=== PATIENT | female | born 1950 | race Caucasian/White ===

== ENCOUNTER 2019-09-12 15:49 | Inpatient (IN) | payer MEDICARE, OTHER ==
[~2019-09-12] VITALS: Ht 154.9 cm; Wt 57.2 kg
[2019-09-12] MEDS ORDERED: LORAZEPAM 1 MG TABLET ONE (16:04)
[2019-09-12] MEDS ORDERED: BUSP5TAB3 PO (16:09)
[2019-09-12] MEDS ORDERED: HYDR-3980 PO (16:09)
[2019-09-12] MEDS ORDERED: APIX5TAB4 PO (16:09)
[2019-09-12] MEDS ORDERED: MIRT15TA7 PO (16:09)
[2019-09-12] MEDS ORDERED: SPIR25TA6 PO (16:09)
[2019-09-12] MEDS ORDERED: SENN-168 PO (16:09)
[2019-09-12] MEDS ORDERED: LEVE500T20 PO (16:09)
[2019-09-12] MEDS ORDERED: FURO20TA4 PO (16:09)
[2019-09-12] MEDS ORDERED: LOPE2TAB25 PO (16:09)
[2019-09-12] MEDS ORDERED: LEVO50TA8 PO (16:09)
[2019-09-12] MEDS ORDERED: DULO30CA2 PO (16:09)
[2019-09-12] MEDS ORDERED: LORAZEPAM 0.5 MG TABLET PO ONE (16:15)
[2019-09-12] MEDS ORDERED: IV NORMAL SALINE 1000 ML BAG IV ONE (16:15)
[2019-09-12 16:33] LABS: POTASSIUM 4.1 mmol/L (3.5-5.1)
[2019-09-12 16:34] LABS: BILIRUBIN,DIRECT 0.3 mg/dL (0.0-0.2); CREATININE 1.2 mg/dL (0.6-1.3)
[2019-09-12 16:35] LABS: TOTAL PROTEIN, SERUM 7.1 g/dL (6.4-8.2)
[2019-09-12 16:38] LABS: HEMATOCRIT 41.6 % (37-47); HEMOGLOBIN 13.7 G/DL (12.0-16.0); MEAN CORPUSCULAR HEMOGLOBIN 30.9 UUG (27.0-31.0); MEAN CORPUSCULAR HGB CONC 33 g/dL (32.0-37.0); MEAN CORPUSCULAR VOLUME 93.8 FL (81.0-99.0); PLATELET COUNT (AUTO) 157 K/UL (150-450); RED BLOOD CELL COUNT(AUTO) 4.43 MIL/UL (4.2-5.4); WHITE BLOOD COUNT (AUTO) 9.7 K/UL (4.0-11.2)
[2019-09-12 16:39] LABS: BASOPHILS # (AUTO) 0.1 K/uL (0.0-8.0); EOSINOPHILS # (AUTO) 0.1 K/uL (0.0-0.7); EOSINOPHILS % (AUTO) 0.9 % (0.0-7.0); LYMPHOCYTES % (AUTO) 20.8 % (20.5-51.5); MONOCYTES # (AUTO) 0.8 K/UL (0.1-1.30); MONOCYTES % (AUTO) 8.2 % (0.0-11.0); NEUTROPHILS # (AUTO) 6.7 K/UL (1.8-8.9); NEUTROPHILS % (AUTO) 69.1 % (38.5-71.5)
[2019-09-12 16:56] LABS: THYROID STIMULATING HORMONE 0.327 mIU/mL (0.358-3.740)
[2019-09-12 17:23] LABS: *CLARITY,URINE TURBID (CLEAR); *COLOR,URINE BROWN (YELLOW)
[2019-09-12 17:25] LABS: *BILIRUBIN,URIN 2+ (NEGATIVE); *BLOOD, URINE 2+ (NEGATIVE); *KETONES,URINE TRACE (NEGATIVE); LEUKOCYTE ESTERASE ,URINE 3+ (NEGATIVE); NITRITE, URINE POSITIVE (NEGATIVE); UGLUCOSE NEGATIVE (NEGATIVE)
[2019-09-12 17:28] LABS: BACTERIA,URINE MODERATE /HPF (NONE SEEN); RBC,URINE 20-50 /HPF (0-3); SQUAMOUS EPITHELIAL CELL,UR MANY /HPF (NONE SEEN); WBC,URINE TNTC /HPF (0-3)
[2019-09-12] MEDS ORDERED: CEFTRIAXONE /D5W 50ML IVPB **ER PYXIS IV ONE (18:00)
[2019-09-12] MEDS ORDERED: MAGNESIUM HYDROXIDE 30 ML LIQUID UDC PO PRN (18:00)
[2019-09-12] MEDS ORDERED: CEFTRIAXONE 1 G in IV DEXTROSE 5% 50 ML IV ONE (18:00)
[2019-09-12] MEDS ORDERED: Z GUARD REMEDY PASTE 57 GM TUBE TOP PRN (18:00)
[2019-09-12] MEDS ORDERED: ACETAMINOPHEN 325 MG TABLET PO PRN (18:00)
[2019-09-12] MEDS ORDERED: ONDANSETRON 4 MG/2 ML VIAL IV PRN (18:00)
[2019-09-12 18:54] VITALS: BP 104/72
[2019-09-12 20:00] VITALS: BP 91/59
[2019-09-12] MEDS: MIRTAZAPINE 15 MG TABLET PO SCH (20:28)
[2019-09-12] MEDS: SENNOSIDES 1 TABLET PO SCH (20:28)
[2019-09-12] MEDS: IV NS 1000 ML 1,000 ML IV PRN (20:30)
[2019-09-13] VITALS (7 sets, daily range): BP systolic 100–122; BP diastolic 60–84
[2019-09-13 05:33] LABS: HEMATOCRIT 38.1 % (37-47); HEMOGLOBIN 12.6 G/DL (12.0-16.0); MEAN CORPUSCULAR HEMOGLOBIN 30.5 UUG (27.0-31.0); MEAN CORPUSCULAR VOLUME 92.3 FL (81.0-99.0); RED BLOOD CELL COUNT(AUTO) 4.13 MIL/UL (4.2-5.4); WHITE BLOOD COUNT (AUTO) 5.2 K/UL (4.0-11.2)
[2019-09-13 05:34] LABS: BASOPHILS % (AUTO) 1.5 % (0.0-2.0); EOSINOPHILS % (AUTO) 2.4 % (0.0-7.0); LYMPHOCYTES % (AUTO) 26.9 % (20.5-51.5); MEAN CORPUSCULAR HGB CONC 33 g/dL (32.0-37.0); MONOCYTES % (AUTO) 7.7 % (0.0-11.0); NEUTROPHILS % (AUTO) 61.5 % (38.5-71.5); PLATELET COUNT (AUTO) 100 K/UL (150-450)
[2019-09-13] MEDS: DULOXETINE 30 MG CAPSULE.DR PO SCH (05:50)
[2019-09-13] MEDS: HYDROCODONE/APAP 5-325MG TABLET PO PRN ×2 (06:00→20:59)
[2019-09-13 07:23] LABS: CREATININE 0.9 mg/dL (0.6-1.3)
[2019-09-13 07:24] LABS: POTASSIUM 4.2 mmol/L (3.5-5.1)
[2019-09-13 07:34] LABS: PHOSPHOROUS 3.9 mg/dL (2.5-4.9)
[2019-09-13] MEDS: busPIRone 5 MG TABLET PO SCH ×3 (08:15→17:12)
[2019-09-13] MEDS: APIXABAN 5 MG TABLET PO SCH ×2 (08:15→17:14)
[2019-09-13] MEDS: LEVETIRACETAM 500 MG TABLET PO SCH (08:15)
[2019-09-13] MEDS ORDERED: Medication Not On Formulary EA (Apixaban (Eliquis) 5 MG) PO SCH (09:00)
[2019-09-13] MEDS ORDERED: APIXABAN 5 MG TABLET PO SCH (09:00)
[2019-09-13] MEDS: HYDROCODONE/APAP 10-325 MG TABLET PO PRN (12:20)
[2019-09-13] MEDS: IV NS 1000 ML 1,000 ML IV PRN (15:29)
[2019-09-13] MEDS: CEFTRIAXONE 1 G in IV DEXTROSE 5% 50 ML IV SCH (17:14)
[2019-09-13] MEDS: SENNOSIDES 1 TABLET PO SCH (20:43)
[2019-09-13] MEDS: OLANZAPINE 2.5 MG TABLET PO SCH (20:43)
[2019-09-13] MEDS: MIRTAZAPINE 15 MG TABLET PO SCH (20:44)
[2019-09-14] VITALS: BP 99/72
[2019-09-14 05:08] VITALS: BP 102/78
[2019-09-14] MEDS: DULOXETINE 30 MG CAPSULE.DR PO SCH (06:36)
[2019-09-14] MEDS: LEVOTHYROXINE SODIUM 50 MCG TABLET PO SCH (06:36)
[2019-09-14 08:19] VITALS: BP 123/74
[2019-09-14] MEDS: LEVETIRACETAM 500 MG TABLET PO SCH (08:21)
[2019-09-14] MEDS: busPIRone 5 MG TABLET PO SCH ×3 (08:22→16:31)
[2019-09-14] MEDS: APIXABAN 5 MG TABLET PO SCH ×2 (08:24→16:31)
[2019-09-14] MEDS: HYDROCODONE/APAP 5-325MG TABLET PO PRN (09:23)
[2019-09-14 09:47] LABS: HEMATOCRIT 38.3 % (37-47); HEMOGLOBIN 12.5 G/DL (12.0-16.0); MEAN CORPUSCULAR HEMOGLOBIN 30.8 UUG (27.0-31.0); MEAN CORPUSCULAR HGB CONC 33 g/dL (32.0-37.0); MEAN CORPUSCULAR VOLUME 94.6 FL (81.0-99.0); PLATELET COUNT (AUTO) 88 K/UL (150-450); RED BLOOD CELL COUNT(AUTO) 4.05 MIL/UL (4.2-5.4)
[2019-09-14 09:48] LABS: BASOPHILS % (AUTO) 0.9 % (0.0-2.0); EOSINOPHILS # (AUTO) 0.1 K/uL (0.0-0.7); EOSINOPHILS % (AUTO) 2.7 % (0.0-7.0); LYMPHOCYTES # (AUTO) 0.9 K/UL (0.8-4.8); MONOCYTES # (AUTO) 0.1 K/UL (0.1-1.30); MONOCYTES % (AUTO) 4.8 % (0.0-11.0); NEUTROPHILS # (AUTO) 1.9 K/UL (1.8-8.9); NEUTROPHILS % (AUTO) 62.6 % (38.5-71.5)
[2019-09-14 10:16] LABS: CREATININE 0.8 mg/dL (0.6-1.3); MAGNESIUM 1.9 mg/dL (1.8-2.4)
[2019-09-14 10:46] LABS: BASOPHILS % (MANUAL) 2 % (0-2); EOSINOPHILS % (MANUAL) 3 % (0-8); LYMPHOCYTES % (MANUAL) 27 % (20-40); MONOCYTES % (MANUAL) 2 % (2-10); NEUTROPHILS % (MANUAL) 66 % (42-75)
[2019-09-14 11:00] VITALS: BP 102/62
[2019-09-14] MEDS: IV NS 1000 ML 1,000 ML IV PRN (12:00)
[2019-09-14 15:00] VITALS: BP 93/58
[2019-09-14] MEDS: CEFTRIAXONE 1 G in IV DEXTROSE 5% 50 ML IV SCH (17:36)
[2019-09-14 19:55] VITALS: BP 100/64
[2019-09-14] MEDS: SENNOSIDES 1 TABLET PO SCH (20:01)
[2019-09-14] MEDS: OLANZAPINE 2.5 MG TABLET PO SCH (20:02)
[2019-09-14] MEDS: MIRTAZAPINE 15 MG TABLET PO SCH (20:02)
[2019-09-14] MEDS: HYDROCODONE/APAP 10-325 MG TABLET PO PRN (20:05)
[2019-09-15 00:18] VITALS: BP 105/68
[2019-09-15] MEDS: HYDROCODONE/APAP 10-325 MG TABLET PO PRN ×2 (03:25→12:22)
[2019-09-15 04:56] VITALS: BP 124/75
[2019-09-15] MEDS: DULOXETINE 30 MG CAPSULE.DR PO SCH (06:37)
[2019-09-15] MEDS: LEVOTHYROXINE SODIUM 50 MCG TABLET PO SCH (06:37)
[2019-09-15] MEDS: busPIRone 5 MG TABLET PO SCH ×2 (09:30→12:16)
[2019-09-15] MEDS: LEVETIRACETAM 500 MG TABLET PO SCH (09:30)
[2019-09-15] MEDS ORDERED: APIXABAN 5 MG TABLET PO SCH (10:00)
[2019-09-15] MEDS ORDERED: CEPH-570 PO (10:28)
[2019-09-15] MEDS ORDERED: OLAN2.5T3 PO (10:28)
[2019-09-15 11:25] VITALS: BP 108/56
[2019-09-15 15:14] VITALS: BP 113/74
== END 2019-09-15 16:11 | DRG 689 ==
LOC: ER 15:49 → CCU 18:10 → TELE3 09-13 06:25 → TELE-TD3 09-13 07:08 → TELE3 09-14 09:07 → MEDSURG3 09-15 15:05
PROVIDERS: ADMIT Nurse Practitioner Acute Care; ATTEND Nurse Practitioner Acute Care
DX: N39.0 Urinary tract infection, site not specified (principal); G93.41 Metabolic encephalopathy; R45.851 Suicidal ideations; I48.91 Unspecified atrial fibrillation; B96.20 Unspecified Escherichia coli [E. coli] as the cause of diseases classified elsewhere; F25.9 Schizoaffective disorder, unspecified; M21.822 Other specified acquired deformities of left upper arm; M19.112 Post-traumatic osteoarthritis, left shoulder; K70.30 Alcoholic cirrhosis of liver without ascites; F10.10 Alcohol abuse, uncomplicated; Y90.9 Presence of alcohol in blood, level not specified; J44.9 Chronic obstructive pulmonary disease, unspecified; E03.9 Hypothyroidism, unspecified; I25.10 Atherosclerotic heart disease of native coronary artery without angina pectoris; M79.7 Fibromyalgia; F17.210 Nicotine dependence, cigarettes, uncomplicated; Z91.410 Personal history of adult physical and sexual abuse; G89.29 Other chronic pain; Z79.890 Hormone replacement therapy; Z82.49 Family history of ischemic heart disease and other diseases of the circulatory system; Z91.411 Personal history of adult psychological abuse; E86.0 Dehydration; Z86.19 Personal history of other infectious and parasitic diseases; Z79.01 Long term (current) use of anticoagulants; F15.90 Other stimulant use, unspecified, uncomplicated
CPT/HCPCS: 36415; 70030-TC; 71045; 83605; 83735; 84100; 84443; 85025; 85730; 87040; 87086; 93005; 93307; A4663; G0378; J0696; J7030; J7040; J7060

== ENCOUNTER 2019-09-15 16:27 | Inpatient (IN) | payer MEDICARE, OTHER ==
[~2019-09-15] VITALS: Ht 175.3 cm; Wt 53.5 kg
[~2019-09-15 16:27] MED LIST: APIX5TAB4 PO; BUSP5TAB3 PO; CEPH-570 PO; DULO30CA2 PO; FURO20TA4 PO; HYDR-3980 PO; LEVE500T20 PO; LEVO50TA8 PO; LOPE2TAB25 PO; MIRT15TA7 PO; OLAN2.5T3 PO; SENN-168 PO; SPIR25TA6 PO
[2019-09-15] MEDS ORDERED: QUETIAPINE FUMARATE 25 MG TABLET PO PRN (17:45)
[2019-09-15] MEDS ORDERED: MAGNESIUM HYDROXIDE 30 ML LIQUID UDC PO PRN (17:45)
[2019-09-15] MEDS ORDERED: ACETAMINOPHEN 325 MG TABLET PO PRN (17:45)
[2019-09-15] MEDS ORDERED: BLOOD SUGAR DIAGNOSTIC 1 EACH STRIP VI ONE (17:45)
[2019-09-15 20:18] VITALS: BP 105/58
[2019-09-15] MEDS: ZOLPIDEM 5 MG TABLET PO PRN (23:34)
[2019-09-16] MEDS: HYDROCODONE/APAP 10-325 MG TABLET PO PRN ×2 (04:32→10:53)
[2019-09-16 05:59] LABS: BASOPHILS # (AUTO) 0.1 K/uL (0.0-8.0); BASOPHILS % (AUTO) 2.3 % (0.0-2.0); EOSINOPHILS # (AUTO) 0.1 K/uL (0.0-0.7); EOSINOPHILS % (AUTO) 3.4 % (0.0-7.0); HEMATOCRIT 35.4 % (31.2-41.9); HEMOGLOBIN 11.7 g/dL (10.9-14.3); LYMPHOCYTES # (AUTO) 1.1 K/uL (20.0-40.0); LYMPHOCYTES % (AUTO) 33.5 % (20.5-51.5); MEAN CORPUSCULAR HGB CONC 33 g/dL (32.3-35.6); MEAN CORPUSCULAR VOLUME 93.5 fL (75.5-95.3); MONOCYTES # (AUTO) 0.2 K/uL (2.0-10.0); MONOCYTES % (AUTO) 7.4 % (0.0-11.0); NEUTROPHILS # (AUTO) 1.7 K/uL (1.8-8.9); NEUTROPHILS % (AUTO) 53.4 % (38.5-71.5); PLATELET COUNT (AUTO) 93 K/uL (179-408); RED BLOOD CELL COUNT(AUTO) 3.79 MIL/uL (3.63-4.92); WHITE BLOOD COUNT (AUTO) 3.3 K/uL (3.8-11.8)
[2019-09-16 06:16] LABS: CREATININE 0.7 mg/dL (0.6-1.3); POTASSIUM 3.8 mmol/L (3.5-5.1)
[2019-09-16] MEDS: LEVOTHYROXINE SODIUM 50 MCG TABLET PO SCH (06:37)
[2019-09-16] MEDS: FUROSEMIDE 20 MG TABLET PO SCH (08:49)
[2019-09-16] MEDS: CEphaleXIN 500 MG CAPSULE PO SCH ×2 (08:49→17:19)
[2019-09-16] MEDS: DULOXETINE 20 MG CAPSULE.DR PO SCH (08:49)
[2019-09-16] MEDS: SPIRONOLACTONE 25 MG TABLET PO SCH (08:49)
[2019-09-16] MEDS: LEVETIRACETAM 500 MG TABLET PO SCH (08:49)
[2019-09-16] MEDS ORDERED: Medication Not On Formulary EA (Apixaban (Eliquis) 5 MG) PO SCH (09:00)
[2019-09-16] MEDS: APIXABAN 5 MG TABLET PO SCH ×2 (11:52→17:20)
[2019-09-16 12:00] VITALS: BP 105/63
[2019-09-16 13:18] LABS: BILIRUBIN,DIRECT 0.1 mg/dL (0.0-0.2); BILIRUBIN,TOTAL 0.4 mg/dL (0.2-1.0); TOTAL PROTEIN, SERUM 6.1 g/dL (6.4-8.2)
[2019-09-16 15:16] VITALS: BP 106/74
[2019-09-16 20:02] VITALS: BP 110/62
[2019-09-16] MEDS: OLANZAPINE 5 MG TABLET PO SCH (20:39)
[2019-09-16] MEDS: SENNOSIDES 1 TABLET PO SCH (20:39)
[2019-09-16] MEDS: CARVEDILOL 6.25 MG TABLET PO SCH (20:40)
[2019-09-16] MEDS: ZOLPIDEM 5 MG TABLET PO PRN (21:24)
[2019-09-17] MEDS: LEVOTHYROXINE SODIUM 50 MCG TABLET PO SCH (06:30)
[2019-09-17] MEDS: HYDROCODONE/APAP 10-325 MG TABLET PO PRN ×3 (06:54→18:52)
[2019-09-17] MEDS: DULOXETINE 20 MG CAPSULE.DR PO SCH (08:25)
[2019-09-17] MEDS: LEVETIRACETAM 500 MG TABLET PO SCH (08:25)
[2019-09-17] MEDS: SPIRONOLACTONE 25 MG TABLET PO SCH (08:25)
[2019-09-17] MEDS: OLANZAPINE 2.5 MG TABLET PO SCH (08:25)
[2019-09-17] MEDS: FUROSEMIDE 20 MG TABLET PO SCH (08:25)
[2019-09-17] MEDS: CEphaleXIN 500 MG CAPSULE PO SCH ×2 (08:26→17:43)
[2019-09-17] MEDS: CARVEDILOL 6.25 MG TABLET PO SCH ×2 (08:26→17:45)
[2019-09-17] MEDS: APIXABAN 5 MG TABLET PO SCH ×2 (08:28→17:44)
[2019-09-17 11:41] VITALS: BP 111/64
[2019-09-17 16:00] VITALS: BP 147/95
[2019-09-17] MEDS: OLANZAPINE 5 MG TABLET PO SCH (20:44)
[2019-09-17] MEDS: SENNOSIDES 1 TABLET PO SCH (20:44)
[2019-09-17 20:55] VITALS: BP 121/61
[2019-09-18] MEDS: LEVOTHYROXINE SODIUM 50 MCG TABLET PO SCH (06:48)
[2019-09-18 07:30] VITALS: BP 133/90
[2019-09-18] MEDS: SPIRONOLACTONE 25 MG TABLET PO SCH (08:21)
[2019-09-18] MEDS: LEVETIRACETAM 500 MG TABLET PO SCH (08:21)
[2019-09-18] MEDS: FUROSEMIDE 20 MG TABLET PO SCH (08:21)
[2019-09-18] MEDS: CEphaleXIN 500 MG CAPSULE PO SCH ×2 (08:21→16:19)
[2019-09-18] MEDS: OLANZAPINE 2.5 MG TABLET PO SCH (08:21)
[2019-09-18] MEDS: CARVEDILOL 6.25 MG TABLET PO SCH ×2 (08:22→18:00)
[2019-09-18] MEDS: DULOXETINE 20 MG CAPSULE.DR PO SCH (08:22)
[2019-09-18] MEDS: APIXABAN 5 MG TABLET PO SCH ×2 (08:25→16:22)
[2019-09-18] MEDS: HYDROCODONE/APAP 10-325 MG TABLET PO PRN ×2 (09:04→21:21)
[2019-09-18 16:00] VITALS: BP 106/68
[2019-09-18] MEDS: OLANZAPINE 5 MG TABLET PO SCH (20:06)
[2019-09-18] MEDS: SENNOSIDES 1 TABLET PO SCH (20:06)
[2019-09-18 21:01] VITALS: BP 142/82
[2019-09-18] MEDS: ZOLPIDEM 5 MG TABLET PO PRN (21:53)
[2019-09-19] MEDS: HYDROCODONE/APAP 10-325 MG TABLET PO PRN ×3 (03:19→17:52)
[2019-09-19] MEDS: LEVOTHYROXINE SODIUM 50 MCG TABLET PO SCH (06:43)
[2019-09-19 07:30] VITALS: BP 120/82
[2019-09-19] MEDS: OLANZAPINE 2.5 MG TABLET PO SCH (08:21)
[2019-09-19] MEDS: FUROSEMIDE 20 MG TABLET PO SCH (08:21)
[2019-09-19] MEDS: DULOXETINE 20 MG CAPSULE.DR PO SCH (08:21)
[2019-09-19] MEDS: LEVETIRACETAM 500 MG TABLET PO SCH (08:21)
[2019-09-19] MEDS: CEphaleXIN 500 MG CAPSULE PO SCH (08:21)
[2019-09-19] MEDS: APIXABAN 5 MG TABLET PO SCH ×2 (08:22→17:56)
[2019-09-19] MEDS: SPIRONOLACTONE 25 MG TABLET PO SCH (08:22)
[2019-09-19] MEDS: CARVEDILOL 6.25 MG TABLET PO SCH ×2 (08:23→18:20)
[2019-09-19 16:41] VITALS: BP 118/76
[2019-09-19 20:18] VITALS: BP 109/65
[2019-09-19] MEDS: SENNOSIDES 1 TABLET PO SCH (20:30)
[2019-09-19] MEDS: OLANZAPINE 5 MG TABLET PO SCH (20:30)
[2019-09-19] MEDS: ZOLPIDEM 5 MG TABLET PO PRN (22:39)
[2019-09-20] MEDS: LEVOTHYROXINE SODIUM 50 MCG TABLET PO SCH (06:44)
[2019-09-20] MEDS: HYDROCODONE/APAP 10-325 MG TABLET PO PRN ×3 (06:44→19:47)
[2019-09-20] MEDS: CARVEDILOL 6.25 MG TABLET PO SCH ×2 (08:16→17:01)
[2019-09-20] MEDS: DULOXETINE 20 MG CAPSULE.DR PO SCH (08:16)
[2019-09-20] MEDS: SPIRONOLACTONE 25 MG TABLET PO SCH (08:16)
[2019-09-20] MEDS: APIXABAN 5 MG TABLET PO SCH ×2 (08:17→16:36)
[2019-09-20 08:18] VITALS: BP 121/76
[2019-09-20] MEDS: LEVETIRACETAM 500 MG TABLET PO SCH (08:18)
[2019-09-20] MEDS: FUROSEMIDE 20 MG TABLET PO SCH (08:18)
[2019-09-20] MEDS: OLANZAPINE 2.5 MG TABLET PO SCH (08:18)
[2019-09-20] MEDS ORDERED: OLANZAPINE 2.5 MG TABLET PO ONE (14:00)
[2019-09-20 16:29] VITALS: BP 119/73
[2019-09-20 20:08] VITALS: BP 103/67
[2019-09-20] MEDS: OLANZAPINE 5 MG TABLET PO SCH (20:43)
[2019-09-20] MEDS: SENNOSIDES 1 TABLET PO SCH (20:43)
[2019-09-21] MEDS: ZOLPIDEM 5 MG TABLET PO PRN (00:01)
[2019-09-21] MEDS: HYDROCODONE/APAP 10-325 MG TABLET PO PRN ×4 (03:26→22:05)
[2019-09-21] MEDS: LEVOTHYROXINE SODIUM 50 MCG TABLET PO SCH (06:59)
[2019-09-21] MEDS: SPIRONOLACTONE 25 MG TABLET PO SCH (08:19)
[2019-09-21] MEDS: DULOXETINE 20 MG CAPSULE.DR PO SCH (08:19)
[2019-09-21] MEDS: OLANZAPINE 2.5 MG TABLET PO SCH (08:19)
[2019-09-21] MEDS: FUROSEMIDE 20 MG TABLET PO SCH (08:19)
[2019-09-21] MEDS: LEVETIRACETAM 500 MG TABLET PO SCH (08:19)
[2019-09-21] MEDS: CARVEDILOL 6.25 MG TABLET PO SCH ×2 (08:20→17:06)
[2019-09-21] MEDS: APIXABAN 5 MG TABLET PO SCH ×2 (08:21→16:47)
[2019-09-21 08:25] VITALS: BP 108/76
[2019-09-21 16:30] VITALS: BP 95/62
[2019-09-21 20:00] VITALS: BP 115/67
[2019-09-21] MEDS: SENNOSIDES 1 TABLET PO SCH (20:51)
[2019-09-21] MEDS: OLANZAPINE 5 MG TABLET PO SCH (20:51)
[2019-09-22] MEDS: HYDROCODONE/APAP 10-325 MG TABLET PO PRN ×2 (05:49→12:23)
[2019-09-22] MEDS: LEVOTHYROXINE SODIUM 50 MCG TABLET PO SCH (06:30)
[2019-09-22] MEDS: CARVEDILOL 6.25 MG TABLET PO SCH (08:00)
[2019-09-22 08:05] VITALS: BP 95/55
[2019-09-22] MEDS: LEVETIRACETAM 500 MG TABLET PO SCH (08:16)
[2019-09-22] MEDS: FUROSEMIDE 20 MG TABLET PO SCH (08:16)
[2019-09-22] MEDS: OLANZAPINE 2.5 MG TABLET PO SCH (08:17)
[2019-09-22] MEDS: SPIRONOLACTONE 25 MG TABLET PO SCH (08:17)
[2019-09-22] MEDS: DULOXETINE 20 MG CAPSULE.DR PO SCH (08:18)
[2019-09-22] MEDS: APIXABAN 5 MG TABLET PO SCH (08:19)
[2019-09-23] MEDS ORDERED: TOBRAMYCIN 0.3% OPHT DROP 5 ML BOTTLE RIGHTEYE SCH (21:00)
[2019-09-23] MEDS ORDERED: CIPROFLOXACIN 0.3% OPHT DROP 2.5 ML BOTTLE EACHEYE SCH (21:00)
== END 2019-09-22 13:45 | DRG 885 ==
LOC: GPSOV3 16:27 → GPS 09-17 15:57
PROVIDERS: ADMIT Psychiatry & Neurology Psychiatry; ATTEND Nurse Practitioner Acute Care
DX: F25.9 Schizoaffective disorder, unspecified (principal); N39.0 Urinary tract infection, site not specified; E44.0 Moderate protein-calorie malnutrition; D68.59 Other primary thrombophilia; I50.32 Chronic diastolic (congestive) heart failure; E03.9 Hypothyroidism, unspecified; G40.909 Epilepsy, unspecified, not intractable, without status epilepticus; M16.11 Unilateral primary osteoarthritis, right hip; F17.210 Nicotine dependence, cigarettes, uncomplicated; Z91.410 Personal history of adult physical and sexual abuse; Z87.81 Personal history of (healed) traumatic fracture; F15.11 Other stimulant abuse, in remission; I25.10 Atherosclerotic heart disease of native coronary artery without angina pectoris; J44.9 Chronic obstructive pulmonary disease, unspecified; G89.29 Other chronic pain; Z87.440 Personal history of urinary (tract) infections; F41.9 Anxiety disorder, unspecified; K74.60 Unspecified cirrhosis of liver; I48.91 Unspecified atrial fibrillation; H54.7 Unspecified visual loss; D69.6 Thrombocytopenia, unspecified; B96.89 Other specified bacterial agents as the cause of diseases classified elsewhere; G31.84 Mild cognitive impairment of uncertain or unknown etiology; D63.8 Anemia in other chronic diseases classified elsewhere; Z86.19 Personal history of other infectious and parasitic diseases; I70.0 Atherosclerosis of aorta
CPT/HCPCS: 36415; 85025